=== PATIENT | male | born 2000 ===

== ENCOUNTER 2021-04-11 18:57 | Emergency (ER) | payer OTHER ==
[~2021-04-11] VITALS: Ht 177.8 cm; Wt 99.8 kg
[2021-04-11] MEDS ORDERED: IBUPROFEN 600 MG TAB PO ONE (19:15)
[2021-04-12 00:08] VITALS: BP 141/96
== END 2021-04-12 00:27 | disposition home or self-care (01) ==
LOC: ER 18:57
DX: T85.01XA Breakdown (mechanical) of ventricular intracranial (communicating) shunt, initial encounter (principal); R51.9 Headache, unspecified; Z20.822 Contact with and (suspected) exposure to COVID-19; Z98.2 Presence of cerebrospinal fluid drainage device; Y92.89 Other specified places as the place of occurrence of the external cause
CPT/HCPCS: 36415; 70450; 73000; 87426